=== PATIENT | female | born 1960 | race Two or more races ===

== ENCOUNTER 2021-07-28 20:24 | Emergency (ER) | payer OTHER ==
[~2021-07-28] VITALS: Ht 165.1 cm; Wt 72.6 kg
--- NOTE | 2021-07-28 20:45 | NUR ---
TO ER BED 19. BIBSELF C/O LEFT WRIST/FOREARM PAIN S/P GLF. PT DENIES HEADTRUAMA DENIES KO. AWAITING MD CEBALLOS
--- NOTE | 2021-07-28 20:50 | NUR ---
XRAY IN ROOM
[2021-07-28] MEDS ORDERED: HYDR-4209 PO (21:37)
--- NOTE | 2021-07-28 21:49 | NUR ---
Patient discharged to home in stable condition. Written and verbal after care instructions given. Patient verbalizes understanding of instruction.
[2021-07-28 22:00] VITALS: BP 112/70
== END 2021-07-28 22:00 | disposition home or self-care (01) ==
LOC: ER 20:33
DX: S52.572A Other intraarticular fracture of lower end of left radius, initial encounter for closed fracture (principal); W18.09XA Striking against other object with subsequent fall, initial encounter; Y93.89 Activity, other specified; Y92.89 Other specified places as the place of occurrence of the external cause; Y99.8 Other external cause status
CPT/HCPCS: 73090-TC; 73110

== ENCOUNTER 2021-08-01 22:51 | Emergency (ER) | payer OTHER ==
[~2021-08-01] VITALS: Ht 154.9 cm; Wt 69.9 kg
[~2021-08-01 22:51] MED LIST: HYDR-4209 PO
--- NOTE | 2021-08-01 23:00 | NUR ---
PT BIBSELF FROM HOME C/O R RIBS PAIN S/P FALL 4 DAYS AGO. SLING AND DRESSING TO LEFT ARM [employer]. PT A/OX4. TOLERATING R/A WELL WITH NO SOB.
--- NOTE | 2021-08-01 23:14 | NUR ---
DR. LAW STACY AT PT'S BEDSIDE
--- NOTE | 2021-08-01 23:21 | NUR ---
RAD AT BED SIDE
[2021-08-01] MEDS ORDERED: KETOROLAC TROMETHAMINE INJ 30 MG/ML VIAL ONE (23:24)
[2021-08-01] MEDS ORDERED: KETOROLAC TROMETHAMINE INJ 30 MG/ML VIAL IM ONE (23:30)
--- NOTE | 2021-08-02 00:12 | NUR ---
CALLED [facility] TO F/U WITH XRAY REPORT
[2021-08-02] MEDS ORDERED: HYDR-4209 PO (01:57)
--- NOTE | 2021-08-02 02:03 | NUR ---
Patient discharged to home in stable condition. Rx and Written and verbal after care instructions given. Patient verbalizes understanding of instruction.
[2021-08-02 03:08] VITALS: BP 131/75
== END 2021-08-02 02:03 | disposition home or self-care (01) ==
LOC: ER 22:51
DX: R07.81 Pleurodynia (principal); Z87.39 Personal history of other diseases of the musculoskeletal system and connective tissue; Z79.891 Long term (current) use of opiate analgesic; W18.30XS Fall on same level, unspecified, sequela; Y93.89 Activity, other specified; Y92.89 Other specified places as the place of occurrence of the external cause; Y99.8 Other external cause status
CPT/HCPCS: 71100; 96372; 99283; J1885